=== PATIENT | female | born 1985 | race Caucasian/White ===

== ENCOUNTER 2019-01-13 13:19 | Emergency (ER) | payer BC ==
[2019-01-13 13:35] VITALS: BP 156/108; RESP 18; TEMP 98.2
[2019-01-13] MEDS ORDERED: DEXAMETHASONE 4 MG TAB PO STA (14:14)
[2019-01-13 14:18] VITALS: PULSE 98
--- NOTE | 2019-01-13 14:35 | ED ---
General Adult HPI - General Chief complaint: Shortness of Breath Stated complaint: NAIDA Time Seen by Provider: 01/13/19 13:44 Source: patient, RN notes reviewed Mode of arrival: ambulatory Limitations: no limitations - History of Present Illness Initial comments: 33-year-old female with a past medical history of exercise-induced asthma, GERD presents to the emergency department for a chief complaint of cough. Patient states she has had congestion and a slight sore throat for the past 2-3 days. States that today her cough worsened. States it does not feel like an asthma exacerbation. Does states she feels somewhat short of breath when coughing but states this comes and goes. Denies fevers at home. Denies any chest pain.Patient has no other complaints at this time including shortness of breath, chest pain, abdominal pain, nausea or vomiting, headache, or visual changes. - Related Data Home Medications Medication Instructions Recorded Confirmed Albuterol Inhaler [Ventolin 1 - 2 puff INHALATION Q6HR PRN 01/21/15 01/21/15 Inhaler] Beyaz 28 1 tab PO DAILY 01/21/15 01/22/15 Oxymetazoline 0.05% Nasl [place] 1 spray EA NOSTRIL DAILY PRN 01/21/15 01/22/15 [Afrin 0.05% Nasal [place]] Pseudoephedrine [Sudafed] 60 mg PO Q6H PRN 01/21/15 01/22/15 Previous Rx's Medication Instructions Recorded Dexamethasone [Decadron] 8 mg PO ONCE #2 tablet 01/13/19 Allergies Allergy/AdvReac Type Severity Reaction Status Date / Time codeine Allergy Rash/Hives Verified 01/13/19 13:33 Penicillins Allergy Rash/Hives Verified 01/13/19 13:33 Sulfa (Sulfonamide Allergy Rash/Hives Verified 01/13/19 13:33 Antibiotics) adhesive AdvReac CONTACT Verified 01/13/19 13:33 DERMATITIS Review of Systems ROS Statement: Those systems with pertinent positive or pertinent negative responses have been documented in the HPI. ROS Other: All systems not noted in ROS Statement are negative. Past Medical History Past Medical History: Asthma, GERD/Reflux Additional Past Medical History / Comment(s): STATES HAS HIGH RESTING PULSE RATE 85-100, SENSITIVE TO BANDAIDES-CONTACT DERMATITIS,POSSIBLE HIATAL HERNIA- WHN EATS SOMETIMES FOOD FEELS STUCK, SMALL NODULES ON THYROID,ASTHMA-EXERCISE INDUCED, Long QT complex History of Any Multi-Drug Resistant Organisms: None Reported Additional Past Surgical History / Comment(s): WISDOM TEETH Past Anesthesia/Blood Transfusion Reactions: No Reported Reaction, Family History of Problems w/ Anesthesia Additional Past Anesthesia/Blood Transfusion Reaction / Comment(s): MOM PASSES OUT WITH SMELL OF IODINE Past Psychological History: No Psychological Hx Reported Smoking Status: Never smoker Past Alcohol Use History: None Reported Past Drug Use History: None Reported - Past Family History Father Family Medical History: GERD/Reflux Additional Family Medical History / Comment(s): PT'S (P) GRANDMOTHER HAS HX HIATAL HERNIA & PT'S UNCLE(P) Sister(s) Additional Family Medical History / Comment(s): HIATAL HERNIA Brother(s) Family Medical History: GERD/Reflux General Exam Limitations: no limitations General appearance: alert, in no apparent distress Head exam: Present: atraumatic, normocephalic, normal inspection Eye exam: Present: normal appearance, PERRL, EOMI. Absent: scleral icterus, conjunctival injection, periorbital swelling ENT exam: Present: normal exam, normal oropharynx, mucous membranes moist, TM's normal bilaterally, normal external ear exam Neck exam: Present: normal inspection, full ROM. Absent: tenderness, meningismus, lymphadenopathy Respiratory exam: Present: normal lung sounds bilaterally, other (Cough sounds consistent with croup). Absent: respiratory distress, wheezes, rales, rhonchi, stridor Cardiovascular Exam: Present: regular rate, normal rhythm, normal heart sounds. Absent: systolic murmur, diastolic murmur, rubs, gallop, clicks Neurological exam: Present: alert Psychiatric exam: Present: normal affect, normal mood Course Vital Signs 01/13/19 01/13/19 13:33 14:18 Temperature 98.2 F Pulse Rate 117 H 98 Respiratory 18 Rate Blood Pressure 156/108 O2 Sat by Pulse 96 Oximetry Medical Decision Making - Medical Decision Making 33-year-old female with a past medical history of exercise-induced asthma, GERD presents for chief cough. Patient has had congestion and a slight sore throat for the last 2-3 days. States that today her cough worsened. Does not feel he can asthma exacerbation. On exam patient has a cough that sounds like croup. No stridor whatsoever. No S3 distress. Vitals are stable although somewhat tachycardic. Patient states she is normally at 100. Patient was given oral steroids. X-ray negative for acute cardiac process. Patient will not give antibiotics at this time given no fever, negative chest x-ray, and ALLERGIES to many antibiotics. Patient also has history of QT prolongation so was not given macrolides. Likely viral in nature regardless given viral prodrome of congestion. Patient will be redosed with Decadron in 2 days. She will follow up with primary care. However discussed strict return parameters. Discussed case with Dr. valdes Disposition Clinical Impression: Croup, Upper respiratory infection Disposition: HOME SELF-CARE Condition: Good Instructions (If sedation given, give patient instructions): Croup in Adults (ED) Additional Instructions: Please take steroid in 2 days. Please follow-up with primary care in 1-2 days. Return here if you have any worsening symptoms such as difficulty breathing, difficulty swallowing secretions, or any other concerning symptoms. Prescriptions: Dexamethasone [Decadron] 8 mg PO ONCE #2 tablet Is patient prescribed a controlled substance at d/c from ED?: No Referrals: Horace Cortés MD [Primary Care Provider] - 1-2 days Time of Disposition: 15:23
--- NOTE | 2019-01-13 15:18 | XR ---
EXAMINATION TYPE: XR chest 2V DATE OF EXAM: 01/13/2019 COMPARISON: None HISTORY: 33-year-old female with cough TECHNIQUE: PA and lateral views FINDINGS: The cardiomediastinal silhouette, aorta, and pulmonary vasculature are within normal limits. Lungs an d pleural spaces are clear. IMPRESSION: No acute cardiopulmonary process.
== END 2019-01-13 15:37 | disposition home or self-care (01) ==
LOC: EC 13:19
DX: J06.9 Acute upper respiratory infection, unspecified (principal); J05.0 Acute obstructive laryngitis [croup]; J45.909 Unspecified asthma, uncomplicated; Z79.3 Long term (current) use of hormonal contraceptives; Z88.0 Allergy status to penicillin; Z88.2 Allergy status to sulfonamides; Z88.5 Allergy status to narcotic agent; Z91.048 Other nonmedicinal substance allergy status
CPT/HCPCS: 71046; 99284; J8540